=== PATIENT | female | born 1950 | race Two or more races ===

== ENCOUNTER 2022-12-31 22:31 | Inpatient (IN) | payer OTHER, MEDICAID ==
[~2022-12-31] VITALS: Ht 152.4 cm; Wt 50.5 kg
[2023-01-01] MEDS ORDERED: POLYETHYLENE GLYCOL 17 GM PWDR PO PRN (02:30)
[2023-01-01] MEDS ORDERED: hydrALAZINE HCL 10 MG TAB PO PRN (02:30)
[2023-01-01] MEDS ORDERED: ONDANSETRON HCL 4 MG/2 ML VIAL IV PRN (02:30)
[2023-01-01] MEDS ORDERED: ACETAMINOPHEN 325 MG TAB PO PRN (02:30)
[2023-01-01 02:48] VITALS: BP 147/75
[2023-01-01] MEDS ORDERED: SODIUM CHLORIDE 0.9% 1,000 ML IV SCH (03:00)
[2023-01-01] MEDS ORDERED: LEVO100T8 PO (04:30)
[2023-01-01] MEDS ORDERED: POTA8TAB2 PO (04:43)
[2023-01-01 05:00] VITALS: BP 123/65
[2023-01-01 07:06] LABS: Basophils # (auto) 0.1 10 ^3/uL (0-0.2); Basophils % (auto) 1.4 % (0.0-2.0); Eosinophils # (auto) 0.2 10 ^3/uL (0-0.8); Eosinophils % (auto) 2.9 % (0.0-7.0); Hematocrit 33.2 % (36.0-46.0); Hemoglobin 11.2 g/dL (12.2-16.2); Lymphocytes # (auto) 1.5 10 ^3/uL (0.4-5.4); Mean Corpuscular Hemoglobin 30.3 pg (28.0-32.0); Mean Corpuscular Hgb Conc. 33.7 g/dL (32.0-36.0); Mean Corpuscular Volume 89.9 fL (80.0-100.0); Monocytes # (auto) 0.4 10 ^3/uL (0-1.3); Monocytes % (auto) 6.7 % (0.0-12.0); Neutrophils # (auto) 3.5 10 ^3/uL (1.6-8.6); Nucleated Red Blood Cells % 0.2 %; Red Blood Cells 3.69 10^6/uL (4.0-5.20); Red Cell Distribution Width 13.2 % (11.8-14.3); White Blood Cell 5.6 10^3/uL (4.4-10.8)
[2023-01-01 07:22] LABS: Potassium 3.5 mmol/L (3.5-5.1)
[2023-01-01 07:31] LABS: BUN/Creatinine Ratio 17.5 (10.0-20.0); Calcium 8.6 mg/dL (8.5-10.1)
[2023-01-01 09:22] VITALS: BP 115/77
[2023-01-01 12:21] VITALS: BP 139/77
[2023-01-01 16:31] VITALS: BP 115/77
[2023-01-01 17:00] VITALS: BP 123/70
== END 2023-01-01 17:35 | disposition home health service (06) | DRG 310 ==
LOC: TELE-WESTW 01-01 01:30
PROVIDERS: ADMIT Nurse Practitioner Family; ATTEND Nurse Practitioner Family
DX: I49.5 Sick sinus syndrome (principal); E87.6 Hypokalemia; E03.9 Hypothyroidism, unspecified; E11.9 Type 2 diabetes mellitus without complications; Z95.0 Presence of cardiac pacemaker; Z93.3 Colostomy status; Z90.710 Acquired absence of both cervix and uterus; Z85.41 Personal history of malignant neoplasm of cervix uteri; Z88.0 Allergy status to penicillin; Z88.5 Allergy status to narcotic agent; Z91.040 Latex allergy status; Z83.3 Family history of diabetes mellitus; Z93.6 Other artificial openings of urinary tract status
CPT/HCPCS: 36415; 71045; 80048; 84436; 85025; 93306; G0378

== ENCOUNTER 2023-07-13 22:46 | Inpatient (IN) | payer OTHER, MEDICAID ==
[~2023-07-13] VITALS: Ht 152.4 cm; Wt 47.1 kg
[~2023-07-13 22:46] MED LIST: LEVO100T8 PO; POTA8TAB38 PO
[2023-07-14] VITALS (8 sets, daily range): BP systolic 106–135; BP diastolic 51–78; PULSE 77–89; RESP 14–18; TEMP 97.9–98.4; O2SAT 97–100
[2023-07-14] MEDS ORDERED: ONDANSETRON HCL 4 MG/2 ML VIAL IV PRN (00:45)
[2023-07-14] MEDS ORDERED: ACETAMINOPHEN 325 MG TAB PO PRN (00:45)
[2023-07-14] MEDS ORDERED: hydrALAZINE HCL 10 MG TAB PO PRN (00:45)
[2023-07-14] MEDS: ZINC SULFATE 220mg CAP or TAB PO SCH (08:55)
[2023-07-14] MEDS: ASCORBIC ACID 500 MG TAB PO SCH (08:55)
[2023-07-14] MEDS: FAMOTIDINE 20 MG TAB PO SCH (08:55)
[2023-07-14] MEDS: CHOLECALCIFEROL (VITD3) 2,000 UNIT CAP/TAB PO SCH (08:56)
[2023-07-14] MEDS: cefTRIAXone 1GM/50ML D5W 50 ML IV SCH (09:08)
[2023-07-14] MEDS: ENOXAPARIN SOD 40 MG/0.4 ML SYRINGE SC SCH (09:09)
[2023-07-14] MEDS ORDERED: LEVO88TA4 PO (09:44)
[2023-07-14 11:38] LABS: Basophils # (auto) 0 10 ^3/uL (0-0.2); Basophils % (auto) 0.4 % (0.0-2.0); Eosinophils # (auto) 0 10 ^3/uL (0-0.8); Eosinophils % (auto) 0.1 % (0.0-7.0); Hematocrit 33.4 % (36.0-46.0); Hemoglobin 10.8 g/dL (12.2-16.2); Lymphocytes # (auto) 1.2 10 ^3/uL (0.4-5.4); Lymphocytes % (auto) 21.7 % (10.0-50.0); Mean Corpuscular Hemoglobin 28.4 pg (28.0-32.0); Mean Corpuscular Hgb Conc. 32.4 g/dL (32.0-36.0); Mean Corpuscular Volume 87.8 fL (80.0-100.0); Monocytes # (auto) 0.8 10 ^3/uL (0-1.3); Monocytes % (auto) 13.4 % (0.0-12.0); Neutrophils # (auto) 3.7 10 ^3/uL (1.6-8.6); Neutrophils % (auto) 64.4 % (37.0-80.0); Nucleated Red Blood Cells % 0.2 %; Red Cell Distribution Width 13.3 % (11.8-14.3); White Blood Cell 5.7 10^3/uL (4.4-10.8)
[2023-07-14 11:50] LABS: Chloride 106 mmol/L (98-107); Potassium 3.2 mmol/L (3.5-5.1); Sodium 138 mmol/L (136-145)
[2023-07-14 11:51] LABS: Anion Gap 9 (5-15); Carbon Dioxide 23 mmol/L (20-30)
[2023-07-14 11:52] LABS: Calcium 8.8 mg/dL (8.7-10.4)
[2023-07-14 11:57] LABS: BUN/Creatinine Ratio 14.5 (10.0-20.0); Blood Urea Nitrogen 17 mg/dL (9-23); Glucose 105 mg/dL (74-106)
[2023-07-14] MEDS ORDERED: POTASSIUM CHLORIDE 8 MEQ TAB PO ONE (17:00)
[2023-07-14] MEDS: ACETAMINOPHEN 325 MG TAB PO PRN (17:47)
[2023-07-14] MEDS: POTASSIUM CHLORIDE 8 MEQ TAB PO SCH (21:09)
[2023-07-15] VITALS (8 sets, daily range): BP systolic 113–143; BP diastolic 66–77; PULSE 75–86; RESP 18–22; TEMP 98–98.4; O2SAT 96–100
[2023-07-15] MEDS: LEVOTHYROXINE SODIUM 88 MCG TAB PO SCH (06:53)
[2023-07-15] MEDS: ASCORBIC ACID 500 MG TAB PO SCH (08:51)
[2023-07-15] MEDS: ZINC SULFATE 220mg CAP or TAB PO SCH (08:51)
[2023-07-15] MEDS: FAMOTIDINE 20 MG TAB PO SCH (08:51)
[2023-07-15] MEDS: POTASSIUM CHLORIDE 8 MEQ TAB PO SCH ×2 (08:57→22:00)
[2023-07-15] MEDS: ACETAMINOPHEN 325 MG TAB PO PRN ×2 (08:57→18:10)
[2023-07-15] MEDS: CHOLECALCIFEROL (VITD3) 2,000 UNIT CAP/TAB PO SCH (08:57)
[2023-07-15] MEDS: ENOXAPARIN SOD 40 MG/0.4 ML SYRINGE SC SCH (08:57)
[2023-07-15] MEDS: cefTRIAXone 1GM/50ML D5W 50 ML IV SCH (09:02)
[2023-07-15] MEDS ORDERED: guaiFENesin 200 MG/10 ML UD PO PRN (12:00)
[2023-07-15 13:41] LABS: Chloride 108 mmol/L (98-107); Potassium 3.8 mmol/L (3.5-5.1); Sodium 136 mmol/L (136-145)
[2023-07-15 13:42] LABS: Anion Gap 9 (5-15); Carbon Dioxide 19 mmol/L (20-30)
[2023-07-15 13:47] LABS: BUN/Creatinine Ratio 11.3 (10.0-20.0); Blood Urea Nitrogen 12 mg/dL (9-23); Glucose 117 mg/dL (74-106)
[2023-07-15 13:48] LABS: Magnesium 1.7 mg/dL (1.6-2.6)
[2023-07-16] MEDS: ACETAMINOPHEN 325 MG TAB PO PRN ×2 (02:11→14:06)
[2023-07-16 05:00] VITALS: BP 105/57; PULSE 78; RESP 20; TEMP 98.3; O2SAT 98
[2023-07-16] MEDS: LEVOTHYROXINE SODIUM 88 MCG TAB PO SCH (06:43)
[2023-07-16 08:00] VITALS: PULSE 71
[2023-07-16 08:30] VITALS: BP 109/69; PULSE 65; RESP 19; TEMP 97.9; O2SAT 98
[2023-07-16] MEDS: CHOLECALCIFEROL (VITD3) 2,000 UNIT CAP/TAB PO SCH (09:15)
[2023-07-16] MEDS: FAMOTIDINE 20 MG TAB PO SCH (09:15)
[2023-07-16] MEDS: ENOXAPARIN SOD 40 MG/0.4 ML SYRINGE SC SCH (09:15)
[2023-07-16] MEDS: ASCORBIC ACID 500 MG TAB PO SCH (09:15)
[2023-07-16] MEDS: ZINC SULFATE 220mg CAP or TAB PO SCH (09:15)
[2023-07-16] MEDS: POTASSIUM CHLORIDE 8 MEQ TAB PO SCH (09:15)
[2023-07-16] MEDS: cefTRIAXone 1GM/50ML D5W 50 ML IV SCH (09:16)
[2023-07-16] MEDS ORDERED: HYDR-4902 PO (12:06)
[2023-07-16] MEDS ORDERED: NALO4SPR2 (12:06)
[2023-07-16 12:29] VITALS: BP 137/78; PULSE 74; RESP 20; TEMP 97.8; O2SAT 98
[2023-07-16 13:29] VITALS: BP 137/78; PULSE 74; RESP 20; TEMP 97.8; O2SAT 98
== END 2023-07-16 18:27 | disposition home health service (06) | DRG 551 ==
LOC: TELE-WESTW 07-14 00:48
PROVIDERS: ADMIT Nurse Practitioner Family; ATTEND Nurse Practitioner Family
DX: S32.059A Unspecified fracture of fifth lumbar vertebra, initial encounter for closed fracture (principal); J12.82 Pneumonia due to coronavirus disease 2019; U07.1 COVID-19; N39.0 Urinary tract infection, site not specified; E03.9 Hypothyroidism, unspecified; W18.39XA Other fall on same level, initial encounter; Z78.9 Other specified health status; Z82.49 Family history of ischemic heart disease and other diseases of the circulatory system; Z83.3 Family history of diabetes mellitus; Z85.048 Personal history of other malignant neoplasm of rectum, rectosigmoid junction, and anus; Z85.51 Personal history of malignant neoplasm of bladder; Z93.3 Colostomy status; Z95.0 Presence of cardiac pacemaker; Y93.89 Activity, other specified; Y92.89 Other specified places as the place of occurrence of the external cause; Y99.8 Other external cause status
CPT/HCPCS: 36415; 80048; 83735; 85025; 87040; 87086; 97110; 97116; 97163; 97530; 99291; G0378; J0696

== ENCOUNTER 2024-02-05 23:24 | Inpatient (IN) | payer OTHER, MEDICAID ==
[~2024-02-05] VITALS: Ht 152.4 cm; Wt 52.8 kg
[~2024-02-05 23:24] MED LIST changes: +HYDR-4902 PO; -LEVO100T8 PO; +LEVO88TA4 PO; +NALO4SPR2
[2024-02-06] VITALS (9 sets, daily range): BP systolic 104–125; BP diastolic 53–63; PULSE 60–80; RESP 17–18; TEMP 97.1–98.9; O2SAT 10–100
[2024-02-06] MEDS ORDERED: ACETAMINOPHEN 325 MG TAB PO PRN (00:15)
[2024-02-06 07:43] LABS: Basophils # (auto) 0.1 10 ^3/uL (0-0.2); Basophils % (auto) 1.3 % (0.0-2.0); Eosinophils # (auto) 0.2 10 ^3/uL (0-0.8); Eosinophils % (auto) 4.6 % (0.0-7.0); Hemoglobin 11.3 g/dL (12.2-16.2); Lymphocytes # (auto) 1.6 10 ^3/uL (0.4-5.4); Lymphocytes % (auto) 36.3 % (10.0-50.0); Mean Corpuscular Hemoglobin 28.4 pg (28.0-32.0); Mean Corpuscular Hgb Conc. 32.3 g/dL (32.0-36.0); Monocytes # (auto) 0.4 10 ^3/uL (0-1.3); Monocytes % (auto) 9.3 % (0.0-12.0); Neutrophils # (auto) 2.1 10 ^3/uL (1.6-8.6); Neutrophils % (auto) 48.5 % (37.0-80.0); Nucleated Red Blood Cells % 0.2 %; Red Blood Cells 3.98 10^6/uL (4.0-5.20); Red Cell Distribution Width 14.6 % (11.8-14.3); White Blood Cell 4.3 10^3/uL (4.4-10.8)
[2024-02-06 07:58] LABS: Calcium 9.8 mg/dL (8.5-10.1); Chloride 113 mmol/L (98-107); Potassium 3.7 mmol/L (3.5-5.1); Sodium 138 mmol/L (136-145)
[2024-02-06 07:59] LABS: Anion Gap 3 (5-15); Carbon Dioxide 22 mmol/L (20-30)
[2024-02-06 08:04] LABS: BUN/Creatinine Ratio 11.7 (10.0-20.0); Blood Urea Nitrogen 12 mg/dL (9-23); Glucose 95 mg/dL (74-106)
[2024-02-06 08:05] LABS: Magnesium 1.8 mg/dL (1.6-2.6)
[2024-02-06] MEDS: PANTOPRAZOLE 40 MG/10 ML VIAL INJ IV SCH (09:18)
[2024-02-06] MEDS: ENOXAPARIN SOD 40 MG/0.4 ML SYRINGE SC SCH (09:18)
[2024-02-07] VITALS (7 sets, daily range): BP systolic 88–121; BP diastolic 53–68; PULSE 62–93; RESP 17–21; TEMP 97.6–98.3; O2SAT 94–100
[2024-02-07] MEDS: LEVOTHYROXINE SODIUM 88 MCG TAB PO SCH (07:50)
[2024-02-07] MEDS ORDERED: HYDROcodone-ACET 5/325MG TAB PO PRN (08:45)
[2024-02-07] MEDS: ADENOSINE 45 MG in GIVE UN-DILUTED 0 ML IV ONE (12:03)
[2024-02-08 05:00] VITALS: BP 98/57; PULSE 74; RESP 16; TEMP 97.8; O2SAT 98
[2024-02-08 08:00] VITALS: PULSE 63
[2024-02-08 09:00] VITALS: BP 103/57; PULSE 71; RESP 15; TEMP 98.4; O2SAT 98
[2024-02-08 13:00] VITALS: BP 108/59; PULSE 75; RESP 14; TEMP 97.6; O2SAT 95
[2024-02-08 13:27] VITALS: BP_SYST 103; BP_SYST 110; BP_SYST 111; BP_DIAS 63; BP_DIAS 65; BP_DIAS 70; PULSE 71; PULSE 82; PULSE 85
[2024-02-08 13:28] VITALS: BP 103/65; PULSE 85
== END 2024-02-08 17:15 | disposition home health service (06) | DRG 312 ==
LOC: TELE-CENTR 23:56
PROVIDERS: ADMIT Nurse Practitioner Family; ATTEND Nurse Practitioner Family
PROC: 4B02XSZ Measurement of Cardiac Pacemaker, External Approach (ICD-10-PCS; principal; 2024-02-07)
DX: R55 Syncope and collapse (principal); S01.01XA Laceration without foreign body of scalp, initial encounter; E87.6 Hypokalemia; E03.9 Hypothyroidism, unspecified; E11.22 Type 2 diabetes mellitus with diabetic chronic kidney disease; N18.9 Chronic kidney disease, unspecified; I12.9 Hypertensive chronic kidney disease with stage 1 through stage 4 chronic kidney disease, or unspecified chronic kidney disease; F17.200 Nicotine dependence, unspecified, uncomplicated; I25.10 Atherosclerotic heart disease of native coronary artery without angina pectoris; Z82.49 Family history of ischemic heart disease and other diseases of the circulatory system; Z93.3 Colostomy status; Z85.41 Personal history of malignant neoplasm of cervix uteri; Z83.3 Family history of diabetes mellitus; Z95.0 Presence of cardiac pacemaker; W18.39XA Other fall on same level, initial encounter; Y93.01 Activity, walking, marching and hiking; Y92.89 Other specified places as the place of occurrence of the external cause; Y99.8 Other external cause status
CPT/HCPCS: 36415; 78452; 80048; 83735; 85025; 93017; 93306; 95819; 97110; 97116; 97162; C9113; G0378; J0153